=== PATIENT | male | born 1975 | race Two or more races ===

== ENCOUNTER 2017-08-18 00:22 | Emergency (ER) | payer BC ==
[~2017-08-18] VITALS: Ht 177.8 cm; Wt 131.5 kg
[2017-08-18 00:36] VITALS: BP 140/92
[2017-08-18] MEDS ORDERED: TDAP [DIPH/PERTUSSIS/TET] 0.5 ML VIAL IM ONE ×2 (01:49→02:00)
[2017-08-18] MEDS ORDERED: AMOX/CLAVULANATE 875 MG TABLET ONE (01:50)
[2017-08-18] MEDS ORDERED: AMOX/CLAVULANATE 875 MG TABLET PO ONE (02:00)
== END 2017-08-18 02:04 | disposition home or self-care (01) ==
LOC: ER 00:29
DX: S61.411A Laceration without foreign body of right hand, initial encounter (principal); I10 Essential (primary) hypertension; E11.9 Type 2 diabetes mellitus without complications; W54.0XXA Bitten by dog, initial encounter; Y93.89 Activity, other specified; Y92.098 Other place in other non-institutional residence as the place of occurrence of the external cause; Y99.8 Other external cause status
CPT/HCPCS: 90471; 90715; 99283; A4606; A6402; Z7610